=== PATIENT | male | born 1970 | race Caucasian/White ===

== ENCOUNTER 2016-10-24 10:31 | Emergency (ER) | payer MEDICARE ==
[~2016-10-24] VITALS: Ht 172.7 cm; Wt 95.3 kg
--- NOTE | 2016-10-24 11:15 | PHYS DOC ---
Past Medical History Past Medical History: No Pertinent History Past Surgical History: Other Additional Past Surgical Histo: ?HEART SURGERY AT THE AGE OF 3 Additional Information: Nonsmoker Alcohol Use: None Drug Use: None Adult General Chief Complaint Chief Complaint: CHEST PAIN HPI HPI Patient is a 46 year old male with chronic cough and chronic blood streaked sputum who presents with increased cough and anterior chest wall pains with cough for the past week. States last week he had nausea, vomiting and diarrhea, that has resolved. He mainly concerned about new chest pains and slight difficulty breathing. He denies fever or chills, myalgia, leg pain or swelling, orthopnea, exertional symptoms. He sees pulmonology for his chronic cough and blood-streaked sputum. States the blood streaking is unchanged from chronic nature. Review of Systems Review of Systems Constitutional: Denies fever or chills [] Eyes: Denies change in visual acuity, redness, or eye pain [] HENT: Denies nasal congestion or sore throat [] Respiratory: Has cough and shortness of breath [] Cardiovascular: No additional information not addressed in HPI [] GI: Denies abdominal pain, nausea, vomiting, bloody stools or diarrhea [] : Denies dysuria or hematuria [] Musculoskeletal: Denies back pain or joint pain [] Integument: Denies rash or skin lesions [] Neurologic: Denies headache, focal weakness or sensory changes [] Endocrine: Denies polyuria or polydipsia [] Allergies Allergies Allergies Coded Allergies Type Severity Reaction Last Updated Verified No Known Drug Allergies 10/24/16 No Physical Exam Physical Exam Constitutional: Well developed, well nourished, no acute distress, non-toxic appearance. [] HENT: Normocephalic, atraumatic, bilateral external ears normal, oropharynx moist, no oral exudates, nose normal. [] Eyes: PERRLA, EOMI. [] Neck: Normal range of motion, supple, no stridor. [] Cardiovascular:Heart rate regular rhythm [] Lungs & Thorax: Bilateral breath sounds clear to auscultation. Frequent intermittent dry cough [] Abdomen: Bowel sounds normal, soft, no tenderness. [] Skin: Warm, dry, no erythema, no rash. [] Back: Normal ROM. [] Extremities: No tenderness, ROM intact, no edema, no palpable cord. [] Neurologic: Alert and oriented X 3, normal motor function, normal sensory function, no focal deficits noted. [] Psychologic: Affect normal, judgement normal, mood normal. [] Current Patient Data Vital Signs Vital Signs Date Time Temp Pulse Resp B/P Pulse Ox O2 Delivery O2 Flow Rate FiO2 10/24/16 10:50 98.4 98 18 141/94 96 Room Air 98.4 EKG EKG EKG as interpreted by me as normal sinus rhythm with incomplete RBBB, rate 98, no ST-T changes, WA 132, QTC 492, no ectopy Radiology/Procedures Radiology/Procedures Chest xray as interpreted by me with no acute cardiopulmonary disease process Course & Med Decision Making Course & Med Decision Making Pertinent Labs and Imaging studies reviewed. (See chart for details) History concerning for costochondritis or pleurisy. Encouraged him to take NSAIDs for pain and follow up with his primary care doctor. Return precautions given. He understands and agrees with plan. Dragon Disclaimer Dragon Disclaimer This electronic medical record was generated, in whole or in part, using a voice recognition dictation system. Departure Departure Impression: Primary Impression: Cough Additional Impression: Chest pain Disposition: 01 HOME, SELF-CARE Condition: STABLE Referrals: CATHERINE CLARKE MD (PCP) Patient Instructions: Chest Pain (Nonspecific), [id number] Additional Instructions: Take ibuprofen as needed for pain. Follow-up with your primary care doctor. Return for any concerns. Problem Qualifiers Additional Impression: Chest pain Chest pain type: other chest pain Qualified Code: R07.89 - Other chest pain Mavis LEES MD Oct 24, 2016 11:15
--- NOTE | 2016-10-24 11:33 | RAD ---
EXAM: Chest 2 views. HISTORY: Cough, chest pain, shortness of breath. COMPARISON: 12/20/2012. FINDINGS: Frontal and lateral views of the chest are obtained. There are no confluent infiltrates. There is no pneumothorax or pleural effusion. The heart is not enlarged. There is a moderate to large hiatal hernia.. Pediatric median sternotomy wires are noted. IMPRESSION: 1. No confluent infiltrates. 2. Moderate to large hiatal hernia.
[2016-10-24] MEDS ORDERED: IBUPROFEN 400 MG TABLET. PO ONE (11:45)
[2016-10-24 12:25] VITALS: BP 138/79
--- NOTE | 2016-10-24 14:21 | EKG ---
[facility] [address] [place] [address] Test Date: 2016-10-24 Test Time: 10:48:22 Pat Name: ALEXUS LEBRON Department: Room: Gender: M [employer]: : 1970 Requested By: Mavis LEES Order Number: [id number] Reading MD: Measurements Intervals [place] Rate: 98 P: 25 NH: 132 QRS: 106 QRSD: 102 T: 24 QT: 384 QTc: 492 Interpretive Statements SINUS RHYTHM RIGHTWARD AXIS INCOMPLETE RIGHT BUNDLE BRANCH BLOCK CONSIDER RIGHT VENTRICULAR HYPERTROPHY QRS(T) CONTOUR ABNORMALITY CONSIDER ANTEROLATERAL MYOCARDIAL DAMAGE T ABNORMALITY IN ANTEROSEPTAL LEADS PROLONGED QT ABNORMAL ECG RI6.01 No previous ECG available for comparison
== END 2016-10-24 12:39 | disposition home or self-care (01) ==
LOC: ER 10:31
DX: R07.89 Other chest pain (principal); R05 Cough; R06.02 Shortness of breath
CPT/HCPCS: 71020; 93005; 99284-25

== ENCOUNTER → 2019-10-16 | Outpatient (CLI) | payer MEDICARE ==
[~2019-10-16] MED LIST: ZOLPIDEM 5 MG TABLET. PO ONE
--- NOTE | 2019-10-17 11:20 | SLEEP ---
DATE OF STUDY: 10/16/2019 SLEEP STUDY PRIMARY CARE PHYSICIAN: Tiffany Noland MD REFERRING PHYSICIAN: Sreekanth Santana MD The patient is 49 years old who weighs 215 pounds with a BMI of 33. The patient had a history of sleep apnea. The patient lost his equipment. He needed requalification study. Last study was 7 years ago. During the night study, the patient spent 416 minutes in bed and slept for 358 minutes with a sleep efficiency of 86%. Sleep latency was 25 minutes with a REM latency of 216 minutes. Sleep architecture showed increased stage 1 and stage 2 sleep, reduced slow wave and reduced REM sleep. During the initial diagnostic portion of the study, the patient slept for 123 minutes. During that time, there were 67 obstructive apneas, 3 mixed apneas, no central apneas and 67 hypopneas. The patient's AHI was 67 per hour with a supine AHI of 28 per hour. REM sleep was not seen during the diagnostic portion. EKG monitoring revealed an average heart rate of 88 beats per minute, no sustained arrhythmias observed. Nocturnal oximetry study revealed a mean oxygen saturation of 94% with the lowest of 61%. 9% of time oxygen saturation remained between 80% and 89%. 6% of time between 70% and 79% and 3.6% of time between 50% and 59%. PLMS were seen at index of 73 per hour and 3 per hour caused EEG arousals. The patient met the criteria for CPAP initiation. He was started at 5 cm of water and titrated up to 9 cm of water. At the final pressure, the patient slept for 89 minutes. The patient had supine as well as REM sleep. The patient's AHI was reduced to 1 per hour and oxygen saturation remained above 92%. The patient used small size nasal pillows. IMPRESSION: 1. Severe sleep apnea-hypopnea syndrome at an AHI of 67 per hour. 2. Nocturnal hypoxia secondary to HIEN, but resolved with CPAP. 3. Severe PLMS. RECOMMENDATIONS: 1. CPAP at 9 cm of water completely eliminated the patient's sleep apnea and should be used on a nightly basis. 2. Follow up in 4-6 weeks to assess compliance with CPAP and to document clinical improvement. 3. Weight loss is strongly advised. 4. Avoid [employer] depressants. 5. Cautioned regarding driving until symptoms of sleep apnea resolve with the use of CPAP. 6. The patient should also be further evaluated for symptoms of restless legs during the day. SREEKANTH SANTANA MD DR: JUANJOSE/nelda JOB#: [id number] / [id number] TIFFANY Calzada MD [facility]
== END | disposition home or self-care (01) ==
LOC: SLPLAB 19:00
PROVIDERS: ATTEND Internal Medicine Critical Care Medicine
DX: G47.33 Obstructive sleep apnea (adult) (pediatric) (principal); G47.61 Periodic limb movement disorder; R09.02 Hypoxemia
CPT/HCPCS: 95810

== ENCOUNTER → 2021-08-30 | Outpatient (CLI) | payer MEDICARE ==
--- NOTE | 2021-08-30 12:24 | KCIC ---
EXAM: Chest, 2 views. HISTORY: Cough. COMPARISON: None. FINDINGS: 2 views of the chest are obtained. There is no infiltrate, pleural effusion or pneumothorax . The heart is normal in size. There is a moderate hiatal hernia. There are healed rib fractures. The re is a fixation screw within the left scapula. IMPRESSION: No acute pulmonary finding. Electronically signed by: Charlee Harris MD (08/30/2021 12:21 PM) [id number]
== END ==
LOC: KCIC 11:29
PROVIDERS: ATTEND Internal Medicine Critical Care Medicine
DX: K44.9 Diaphragmatic hernia without obstruction or gangrene (principal); R05.3 Chronic cough; Z98.890 Other specified postprocedural states
CPT/HCPCS: 71046